=== PATIENT | male | born 1960 | race Caucasian/White ===

== ENCOUNTER 2017-08-13 21:28 | Emergency (ER) | payer OTHER ==
[2017-08-14 00:23] VITALS: BP 145/92
== END 2017-08-14 00:23 | disposition short-term general hospital (02) ==
LOC: ED 21:28
DX: S06.6X9A Traumatic subarachnoid hemorrhage with loss of consciousness of unspecified duration, initial encounter (principal); V49.9XXA Car occupant (driver) (passenger) injured in unspecified traffic accident, initial encounter; Y93.89 Activity, other specified; Y99.8 Other external cause status; Y92.89 Other specified places as the place of occurrence of the external cause
CPT/HCPCS: 82962; J1885; J2405